=== PATIENT | female | born 1995 | race Two or more races ===

== ENCOUNTER 2023-01-22 08:55 | Observation (INO) | payer MEDICAID ==
[2023-01-22 10:51] LABS: Urine Bacteria NONE SEEN /hpf (None Seen); Urine Blood Negative /uL (Negative); Urine Clarity Clear (Clear); Urine Protein, UAD Negative (Negative); Urine Specific Gravity 1.004 (1.001-1.035); Urine Urobilinogen Normal (Negative); Urine WBC 1 /hpf (0 - 5); Urine pH 7.5 (5.0-8.0)
[2023-01-22 10:52] LABS: Urine Color Straw (Yellow)
[2023-01-22 10:52] LABS: Basophils # (auto) 0 10 ^3/uL (0-0.2); Basophils % (auto) 0.1 % (0.0-2.0); Eosinophils # (auto) 0 10 ^3/uL (0-0.8); Eosinophils % (auto) 0.3 % (0.0-7.0); Lymphocytes # (auto) 1.5 10 ^3/uL (0.4-5.4); Mean Corpuscular Hemoglobin 29.7 pg (28.0-32.0); Mean Corpuscular Hgb Conc. 33.4 g/dL (32.0-36.0); Mean Corpuscular Volume 88.8 fL (80.0-100.0); Monocytes # (auto) 0.5 10 ^3/uL (0-1.3); Monocytes % (auto) 6.4 % (0.0-12.0); Neutrophils # (auto) 6.1 10 ^3/uL (1.6-8.6); Neutrophils % (auto) 75.2 % (37.0-80.0); Nucleated Red Blood Cells % 0.1 %; Red Blood Cells 4.05 10^6/uL (4.0-5.20); Red Cell Distribution Width 14.8 % (11.8-14.3); White Blood Cell 8.2 10^3/uL (4.4-10.8)
[2023-01-22 10:59] LABS: Protein, Urine < 6.0 mg/dL (0.0-11.9)
[2023-01-22 11:00] LABS: Amphetamine Screen, Urine Neg (NEGATIVE); Barbiturate Scree,Urine Neg (NEGATIVE); Benzodiazephine Screen, Urine Neg (NEGATIVE); Cocaine Screen, Urine Neg (NEGATIVE); Opiate Scree,Urine Neg (NEGATIVE)
[2023-01-22 11:01] LABS: Cannabinoid Screen, Urine Pos (NEGATIVE); Creatinine, Urine 21.29 mg/dL (30.0-125.0); Phencyclidine Screen, Urine Neg (NEGATIVE); Urine Protein/Creatinine Ratio 0.28
[2023-01-22 11:12] LABS: Alanine Aminotransferase 19 U/L (7-40); Alkaline Phosphatase 131 U/L (46-116); Anion Gap 8 (5-15); Aspartate Aminotransferase 23 U/L (13-40); BUN/Creatinine Ratio 9.4 (10.0-20.0); Bilirubin, Total 0.3 mg/dL (0.2-1.0); Blood Urea Nitrogen < 5 mg/dL (9-23); Calcium 9.3 mg/dL (8.5-10.1); Carbon Dioxide 22 mmol/L (20-30); Chloride 109 mmol/L (98-107); Glucose 82 mg/dL (74-106); INR 0.97 (0.9-1.15); Partial Thromboplastin Time 29.9 SEC (24.5-34.5); Prothrombin Time 10.2 sec (9.3-11.8); Sodium 139 mmol/L (136-145); Total Protein 6.5 g/dL (5.7-8.2)
[2023-01-22] MEDS ORDERED: PREN1TAB71 OR (11:13)
[2023-01-22 11:26] LABS: Uric Acid 4.3 mg/dL (3.1-7.8)
== END 2023-01-22 11:55 | disposition home or self-care (01) ==
LOC: LDRP 08:55 → UNDOADMOB 08:55 → LDRP 09:26
PROVIDERS: ADMIT Obstetrics & Gynecology; ATTEND Obstetrics & Gynecology
DX: O13.3 Gestational [pregnancy-induced] hypertension without significant proteinuria, third trimester (principal); Z3A.36 36 weeks gestation of pregnancy; Z79.899 Other long term (current) drug therapy
CPT/HCPCS: 36415; 59025; 76818; 80053; 80307; 81001; 81002; 82570; 84156; 84550; 85025; 85610; 85730; G0378

== ENCOUNTER 2023-02-05 13:35 | Inpatient (IN) | payer MEDICAID ==
[~2023-02-05] VITALS: Ht 167.6 cm; Wt 139.3 kg
[~2023-02-05 13:35] MED LIST: PREN1TAB71 OR
[2023-02-05] MEDS ORDERED: BUTORPHANOL TARTRATE 2 MG/1 ML VIAL IV PRN ×2 (13:45)
[2023-02-05] MEDS ORDERED: WITCH HAZEL-GLYCERIN PAD TOP PRN (13:45)
[2023-02-05] MEDS ORDERED: PHISODERM TOP SOLN 240ML BTL TOP PRN (13:45)
[2023-02-05] MEDS ORDERED: PROMETHAZINE HCL 25 MG/ML 1ML IV PRN (13:45)
[2023-02-05] MEDS ORDERED: DERMOPLAST 60ML BOTTLE TOP PRN (13:45)
[2023-02-05] MEDS ORDERED: LIDOCAINE 2%HCL (LOCAL ANESTH.) INJ 20ML MDV IJ PRN (13:45)
[2023-02-05 14:55] LABS: Basophils # (auto) 0 10 ^3/uL (0-0.2); Basophils % (auto) 0.3 % (0.0-2.0); Eosinophils # (auto) 0 10 ^3/uL (0-0.8); Eosinophils % (auto) 0.4 % (0.0-7.0); Hematocrit 38.4 % (36.0-46.0); Hemoglobin 12.8 g/dL (12.2-16.2); Lymphocytes # (auto) 1.7 10 ^3/uL (0.4-5.4); Lymphocytes % (auto) 18.2 % (10.0-50.0); Mean Corpuscular Hemoglobin 29.7 pg (28.0-32.0); Mean Corpuscular Hgb Conc. 33.4 g/dL (32.0-36.0); Mean Corpuscular Volume 88.9 fL (80.0-100.0); Monocytes # (auto) 0.6 10 ^3/uL (0-1.3); Monocytes % (auto) 6.3 % (0.0-12.0); Neutrophils # (auto) 6.9 10 ^3/uL (1.6-8.6); Neutrophils % (auto) 74.8 % (37.0-80.0); Nucleated Red Blood Cells % 0.1 %; Red Blood Cells 4.33 10^6/uL (4.0-5.20); Red Cell Distribution Width 14.9 % (11.8-14.3); White Blood Cell 9.2 10^3/uL (4.4-10.8)
[2023-02-05] MEDS ORDERED: LACT. RINGERS/OXYTOCIN 20UNITS 500 ML IV ONE ×2 (15:00→15:30)
[2023-02-05 15:06] LABS: Alanine Aminotransferase 23 U/L (7-40); Alkaline Phosphatase 149 U/L (46-116); Anion Gap 11 (5-15); Calcium 9.3 mg/dL (8.5-10.1); Carbon Dioxide 20 mmol/L (20-30); Chloride 110 mmol/L (98-107); Glucose 73 mg/dL (74-106); Potassium 3.5 mmol/L (3.5-5.1); Sodium 141 mmol/L (136-145)
[2023-02-05 15:07] LABS: Albumin 4.2 g/dL (3.2-4.8); Aspartate Aminotransferase 23 U/L (13-40); Bilirubin, Total 0.3 mg/dL (0.2-1.0); Total Protein 6.9 g/dL (5.7-8.2)
[2023-02-05 15:10] LABS: INR 0.95 (0.9-1.15); Partial Thromboplastin Time 29.4 SEC (24.5-34.5)
[2023-02-05 15:15] LABS: BUN/Creatinine Ratio 9.1 (10.0-20.0); Blood Urea Nitrogen < 5 mg/dL (9-23)
[2023-02-05] MEDS ORDERED: miSOPROStol 100 mcg TAB ONE ×2 (17:30→22:48)
[2023-02-05] MEDS: miSOPROStol 50 MCG per PRE-CUT 1/2 TAB PO PRN ×2 (17:32→22:55)
[2023-02-05 17:37] LABS: Urine Bacteria NONE SEEN /hpf (None Seen); Urine Blood Negative /uL (Negative); Urine Clarity Clear (Clear); Urine Color Yellow (Yellow); Urine Mucus FEW (None Seen); Urine Protein, UAD Negative (Negative); Urine Specific Gravity 1.011 (1.001-1.035); Urine Urobilinogen Normal (Negative); Urine WBC 7 /hpf (0 - 5); Urine pH 6.5 (5.0-8.0)
[2023-02-05 17:55] LABS: Amphetamine Screen, Urine Neg (NEGATIVE)
[2023-02-05 17:57] LABS: Barbiturate Scree,Urine Neg (NEGATIVE); Benzodiazephine Screen, Urine Neg (NEGATIVE); Cannabinoid Screen, Urine Pos (NEGATIVE); Cocaine Screen, Urine Neg (NEGATIVE); Opiate Scree,Urine Neg (NEGATIVE); Phencyclidine Screen, Urine Neg (NEGATIVE)
[2023-02-05] MEDS: LABETALOL HCL 200 MG TAB PO SCH (22:19)
[2023-02-06 02:15] LABS: Protein, Urine 16.5 mg/dL (0.0-11.9)
[2023-02-06 02:18] LABS: Creatinine, Urine 66.91 mg/dL (30.0-125.0); Urine Protein/Creatinine Ratio 0.25
[2023-02-06] MEDS ORDERED: miSOPROStol 100 mcg TAB ONE ×2 (04:19→09:50)
[2023-02-06] MEDS: miSOPROStol 50 MCG per PRE-CUT 1/2 TAB PO PRN ×2 (04:30→09:52)
[2023-02-06 07:06] LABS: RPR Non Reactive (Non Reactive)
[2023-02-06] MEDS: LABETALOL HCL 200 MG TAB PO SCH ×2 (10:00→22:03)
[2023-02-06] MEDS: LACTATED RINGER'S 1,000 ML IV SCH ×3 (10:01→18:20)
[2023-02-06] MEDS ORDERED: ROPIVACAINE HCL 100 ML ONE ×2 (14:43→20:05)
[2023-02-06] MEDS ORDERED: ePHEDrine SULFATE 50 MG/ML AMP IV ONE (15:00)
[2023-02-06] MEDS ORDERED: NALOXONE HCL 0.4 MG/ML VIAL IV ONE (15:00)
[2023-02-06] MEDS: ONDANSETRON HCL 4 MG/2 ML VIAL IV PRN (22:04)
[2023-02-07] VITALS (7 sets, daily range): BP systolic 125–144; BP diastolic 66–78; PULSE 81–109; RESP 14–18; TEMP 98.1–98.8; O2SAT 96–100
[2023-02-07] MEDS ORDERED: ROPIVACAINE HCL 100 ML ONE (03:02)
[2023-02-07] MEDS: ONDANSETRON HCL 4 MG/2 ML VIAL IV PRN (03:06)
[2023-02-07] MEDS: LACTATED RINGER'S 1,000 ML IV SCH (03:56)
[2023-02-07] MEDS ORDERED: LACT. RINGERS/OXYTOCIN 20UNITS 1,000 ML IV SCH (05:30)
[2023-02-07] MEDS ORDERED: TERBUTALINE SULFATE 1 MG/ML 1ML VIAL SC PRN (05:30)
[2023-02-07] MEDS ORDERED: SODIUM CHLORIDE 0.9% 1,000 ML IUPC SCH (09:00)
[2023-02-07] MEDS ORDERED: SODIUM CHLORIDE 0.9% 200 ML IUPC ONE (09:00)
[2023-02-07] MEDS ORDERED: ceFAZolin 2 GM/D5W100ml 100 ML IV ONE (10:00)
[2023-02-07] MEDS ORDERED: CEPH500C PO (10:52)
[2023-02-07] MEDS ORDERED: DOCU-94 PO (10:52)
[2023-02-07] MEDS ORDERED: HYDR-4902 PO (10:52)
[2023-02-07] MEDS ORDERED: TETRACAINE 1% INJ 2 ML VIAL IJ ONE (11:27)
[2023-02-07] MEDS ORDERED: MORPHINE SULF PF 5 MG/10 ML VIAL ONE (11:30)
[2023-02-07] MEDS ORDERED: ONDANSETRON HCL 4 MG/2 ML VIAL IV PRN ×3 (11:30→13:15)
[2023-02-07] MEDS ORDERED: LACT. RINGERS/OXYTOCIN 20UNITS 1,000 ML IV ONE (11:30)
[2023-02-07] MEDS ORDERED: CARBOPROST TROMETHAMINE 250 MCG/1ML VIAL IM ONE (12:09)
[2023-02-07] MEDS ORDERED: KETOROLAC TROMETH 30 MG/ML 1ML VIAL IV PRN (13:15)
[2023-02-07] MEDS ORDERED: diphenhdrAMINE HCL 50 MG/1 ML VL IV PRN (13:15)
[2023-02-07] MEDS ORDERED: DexAMETHasone SOD PHOS 10MG/1ML VIAL INJ IV PRN (13:15)
[2023-02-07] MEDS ORDERED: NALOXONE HCL 0.4 MG/ML VIAL IV PRN (13:15)
[2023-02-07] MEDS ORDERED: PROMETHAZINE HCL 25 MG/ML 1ML IV ONE (16:30)
[2023-02-07] MEDS: ceFAZolin 1GM/50ML 50 ML IV SCH (17:52)
[2023-02-07] MEDS ORDERED: ceFAZolin 1GM/50ML 50 ML IV SCH (18:00)
[2023-02-07] MEDS ORDERED: ACETAMINOPHEN IV 1000 MG/100ML (10MG/ML) IV PRN (19:15)
[2023-02-07] MEDS: LABETALOL HCL 200 MG TAB PO SCH (21:51)
[2023-02-07 21:56] LABS: Basophils # (auto) 0 10 ^3/uL (0-0.2); Basophils % (auto) 0.2 % (0.0-2.0); Eosinophils # (auto) 0 10 ^3/uL (0-0.8); Eosinophils % (auto) 0.1 % (0.0-7.0); Hematocrit 33.4 % (36.0-46.0); Hemoglobin 10.8 g/dL (12.2-16.2); Lymphocytes # (auto) 1.7 10 ^3/uL (0.4-5.4); Lymphocytes % (auto) 13.5 % (10.0-50.0); Mean Corpuscular Hemoglobin 29.1 pg (28.0-32.0); Mean Corpuscular Hgb Conc. 32.4 g/dL (32.0-36.0); Mean Corpuscular Volume 89.8 fL (80.0-100.0); Monocytes # (auto) 0.8 10 ^3/uL (0-1.3); Monocytes % (auto) 6.3 % (0.0-12.0); Neutrophils # (auto) 9.8 10 ^3/uL (1.6-8.6); Neutrophils % (auto) 79.9 % (37.0-80.0); Red Blood Cells 3.71 10^6/uL (4.0-5.20); Red Cell Distribution Width 15.1 % (11.8-14.3); White Blood Cell 12.2 10^3/uL (4.4-10.8)
[2023-02-08] VITALS (9 sets, daily range): BP systolic 116–130; BP diastolic 61–77; PULSE 81–98; RESP 16–18; TEMP 98.1–98.7; O2SAT 94–100
[2023-02-08] MEDS: ceFAZolin 1GM/50ML 50 ML IV SCH (02:20)
[2023-02-08 06:08] LABS: Basophils # (auto) 0 10 ^3/uL (0-0.2); Basophils % (auto) 0.1 % (0.0-2.0); Eosinophils # (auto) 0 10 ^3/uL (0-0.8); Eosinophils % (auto) 0.2 % (0.0-7.0); Hematocrit 34.9 % (36.0-46.0); Hemoglobin 11.6 g/dL (12.2-16.2); Lymphocytes # (auto) 1.6 10 ^3/uL (0.4-5.4); Lymphocytes % (auto) 13.7 % (10.0-50.0); Mean Corpuscular Hemoglobin 29.7 pg (28.0-32.0); Mean Corpuscular Hgb Conc. 33.1 g/dL (32.0-36.0); Mean Corpuscular Volume 89.7 fL (80.0-100.0); Monocytes # (auto) 0.9 10 ^3/uL (0-1.3); Monocytes % (auto) 7.5 % (0.0-12.0); Neutrophils # (auto) 9.1 10 ^3/uL (1.6-8.6); Neutrophils % (auto) 78.5 % (37.0-80.0); Red Blood Cells 3.89 10^6/uL (4.0-5.20); Red Cell Distribution Width 14.8 % (11.8-14.3); White Blood Cell 11.6 10^3/uL (4.4-10.8)
[2023-02-08] MEDS ORDERED: ceFAZolin 1GM/50ML 50 ML IV ONE (10:28)
[2023-02-08] MEDS: LABETALOL HCL 200 MG TAB PO SCH ×3 (11:33→23:54)
[2023-02-08] MEDS ORDERED: BISACODYL 10 MG RECT SUPP PR PRN (14:30)
[2023-02-08] MEDS ORDERED: HYDROcodone-ACET 5/325MG TAB PO PRN (14:30)
[2023-02-08] MEDS: HYDROcodone-ACET 5/325MG TAB PO PRN ×2 (14:43→23:53)
[2023-02-08] MEDS: IBUPROFEN 800 MG TAB PO PRN (17:59)
[2023-02-08] MEDS: DOCUSATE SOD 100 MG CAP PO SCH (22:16)
[2023-02-09 03:15] VITALS: BP 107/69; PULSE 78; RESP 16; TEMP 97.6; O2SAT 95
[2023-02-09] MEDS: IBUPROFEN 800 MG TAB PO PRN (03:28)
[2023-02-09 07:00] VITALS: BP 128/72; PULSE 85; RESP 16; TEMP 98.1; O2SAT 85
[2023-02-09] MEDS ORDERED: ONDANSETRON HCL 4 MG/2 ML VIAL IV PRN (08:15)
[2023-02-09] MEDS: DOCUSATE SOD 100 MG CAP PO SCH (10:19)
[2023-02-09] MEDS: LABETALOL HCL 200 MG TAB PO SCH (10:20)
[2023-02-09 10:53] VITALS: BP 141/85; PULSE 89; RESP 17; TEMP 98.3; O2SAT 100
[2023-02-10 19:06] LABS: Treponema pallidum Ab (FTA-Ab) Non Reactive (Non Reactive)
== END 2023-02-09 14:47 | disposition home or self-care (01) | DRG 540 ==
LOC: LDRP 13:35
PROVIDERS: ADMIT Obstetrics & Gynecology; ATTEND Obstetrics & Gynecology
PROC: 10D00Z1 Extraction of Products of Conception, Low, Open Approach (ICD-10-PCS; principal; 2023-02-07 11:34)
DX: O77.0 Labor and delivery complicated by meconium in amniotic fluid (principal); R71.0 Precipitous drop in hematocrit; O16.4 Unspecified maternal hypertension, complicating childbirth; E66.01 Morbid (severe) obesity due to excess calories; O99.214 Obesity complicating childbirth; Z37.0 Single live birth; Z3A.38 38 weeks gestation of pregnancy
CPT/HCPCS: 36415; 62282; 80053; 80307; 81001; 82570; 84156; 85025; 85610; 85730; 86592; 86850; 86900; 86901; 94760; 94762; 96360; 96361; 96366; 96374; G0378; J2405; J2590

== ENCOUNTER 2023-07-24 11:24 | Emergency (ER) | payer MEDICAID ==
[~2023-07-24] VITALS: Ht 167.6 cm; Wt 100.0 kg
[~2023-07-24 11:24] MED LIST changes: +CEPH500C PO; +DOCU-94 PO; +HYDR-4902 PO
[2023-07-24 11:40] LABS: Basophils # (auto) 0.1 10 ^3/uL (0-0.2); Basophils % (auto) 0.5 % (0.0-2.0); Eosinophils # (auto) 0 10 ^3/uL (0-0.8); Eosinophils % (auto) 0.1 % (0.0-7.0); Hematocrit 43.6 % (36.0-46.0); Hemoglobin 14.8 g/dL (12.2-16.2); Lymphocytes # (auto) 0.9 10 ^3/uL (0.4-5.4); Lymphocytes % (auto) 7.6 % (10.0-50.0); Mean Corpuscular Hemoglobin 28.8 pg (28.0-32.0); Mean Corpuscular Hgb Conc. 33.8 g/dL (32.0-36.0); Mean Corpuscular Volume 85.2 fL (80.0-100.0); Monocytes # (auto) 0.6 10 ^3/uL (0-1.3); Monocytes % (auto) 5.4 % (0.0-12.0); Neutrophils # (auto) 10.3 10 ^3/uL (1.6-8.6); Neutrophils % (auto) 86.4 % (37.0-80.0); Nucleated Red Blood Cells % 0.1 %; Red Blood Cells 5.12 10^6/uL (4.0-5.20); White Blood Cell 11.9 10^3/uL (4.4-10.8)
[2023-07-24] MEDS ORDERED: ASPirin 81 mg TAB PO ONE (12:00)
[2023-07-24 12:07] LABS: Alanine Aminotransferase 203 U/L (7-40); Albumin 4.9 g/dL (3.2-4.8); Alkaline Phosphatase 165 U/L (46-116); Anion Gap 9 (5-15); Aspartate Aminotransferase 389 U/L (13-40); BUN/Creatinine Ratio 11.4 (10.0-20.0); Bilirubin, Total 0.7 mg/dL (0.2-1.0); Blood Urea Nitrogen 8 mg/dL (9-23); Calcium 9.9 mg/dL (8.5-10.1); Carbon Dioxide 24 mmol/L (20-30); Chloride 107 mmol/L (98-107); Glucose 108 mg/dL (74-106); Potassium 3.7 mmol/L (3.5-5.1); Sodium 140 mmol/L (136-145); Total Protein 7.9 g/dL (5.7-8.2)
[2023-07-24 12:15] LABS: INR 0.98 (0.9-1.15); Partial Thromboplastin Time 20.5 SEC (24.5-34.5); Prothrombin Time 10.4 sec (9.3-11.8)
[2023-07-24] MEDS: SODIUM CHLORIDE 0.9% 1,000 ML IV ONE (14:15)
[2023-07-24] MEDS: METOCLOPRAMIDE HCL 5MG/ml INJ 2ml VIAL IV ONE (14:26)
[2023-07-24 14:32] VITALS: TEMP 97.6
[2023-07-24] MEDS: IOHEXOL 350 MG/ML 100ML IJ ONE ×2 (15:34)
[2023-07-24] MEDS ORDERED: CEPH500T PO (16:28)
[2023-07-24] MEDS ORDERED: ACET-1304 PO (16:28)
[2023-07-24 16:57] VITALS: BP 118/64; PULSE 73; RESP 18; O2SAT 99
[2023-07-24 17:54] LABS: Urine Bacteria None Seen /hpf (None Seen)
[2023-07-24 18:09] LABS: Amphetamine Screen, Urine Neg (NEGATIVE)
[2023-07-24 18:10] LABS: Barbiturate Scree,Urine Neg (NEGATIVE); Benzodiazephine Screen, Urine Neg (NEGATIVE); Cannabinoid Screen, Urine Pos (NEGATIVE); Cocaine Screen, Urine Neg (NEGATIVE); Opiate Scree,Urine Neg (NEGATIVE); Phencyclidine Screen, Urine Neg (NEGATIVE)
[2023-07-24 18:13] LABS: Urine Blood Negative /uL (Negative); Urine Clarity Clear (Clear); Urine Color Light-Yellow (Yellow); Urine Protein, UAD Negative (Negative); Urine Specific Gravity > 1.035 (1.001-1.035); Urine Urobilinogen Normal (Negative); Urine WBC 2 /hpf (0 - 5); Urine pH 7.5 (5.0-9.0)
== END 2023-07-24 17:00 | disposition home or self-care (01) ==
LOC: ER 11:24
DX: I88.0 Nonspecific mesenteric lymphadenitis (principal); F12.10 Cannabis abuse, uncomplicated; Z79.899 Other long term (current) drug therapy
CPT/HCPCS: 36415; 71045; 71275; 74176; 80053; 80307; 81001; 82550; 83690; 83880; 84484; 84702; 85025; 85379; 85610; 85730; 93005; 93970; 96361; 96374; 99285; J2765; J7030; Q9967

== ENCOUNTER 2025-01-12 17:26 | Emergency (ER) | payer MEDICAID ==
[~2025-01-12] VITALS: Ht 170.2 cm; Wt 128.6 kg
[~2025-01-12 17:26] MED LIST changes: +ACET-1304 PO; +CEPH500T PO
[2025-01-12] MEDS: SODIUM CHLORIDE 0.9% 1,000 ML IV ONE (18:33)
[2025-01-12] MEDS: ONDANSETRON HCL 4 MG/2 ML VIAL IV ONE ×2 (18:33→19:36)
[2025-01-12 18:37] VITALS: PULSE 94; RESP 12; O2SAT 99
[2025-01-12 18:46] LABS: Hematocrit 42.2 % (36.0-46.0); Hemoglobin 14.4 g/dL (12.2-16.2); Mean Corpuscular Hemoglobin 29.1 pg (28.0-32.0); Mean Corpuscular Volume 85.6 fL (80.0-100.0); Nucleated Red Blood Cells % 0.1 %
[2025-01-12 19:05] LABS: Alanine Aminotransferase 19 U/L (7-40); Albumin 4.7 g/dL (3.2-4.8); Alkaline Phosphatase 110 U/L (46-116); Anion Gap 13 (5-15); BUN/Creatinine Ratio 7.2 (10.0-20.0); Bilirubin, Total 0.4 mg/dL (0.2-1.0); Calcium 10.0 mg/dL (8.7-10.4); Carbon Dioxide 23 mmol/L (20-31); Chloride 106 mmol/L (98-107); Potassium 3.6 mmol/L (3.5-5.1); Sodium 142 mmol/L (136-145); Total Protein 8.1 g/dL (5.7-8.2)
[2025-01-12 19:06] LABS: Blood Urea Nitrogen 6 mg/dL (9-23); Glucose 120 mg/dL (74-106)
[2025-01-12] MEDS: HYDROmorphone HCL 2 MG/ML VL/or syr IV ONE (19:38)
[2025-01-12] MEDS: SODIUM CHLORIDE 0.9% 1,000 ML IVB ONE (19:39)
[2025-01-12 19:43] VITALS: PULSE 63; RESP 14; TEMP 98.2; O2SAT 100
--- NOTE | 2025-01-12 20:04 | ED.PDOC ---
GI ASSESSMENT HPI Comments 29-year-old female who came to ER for nausea and vomiting. Patient states after eating dinner she started having diffuse abdominal pain, with the episodes of nausea and vomiting. Patient states she is the only 1 having these symptoms from all the people that ate dinner. Chief Complaint: Nausea/Vomiting Time Seen by MD: 20:04 Reviewed Notes: Nurses Notes Allergies: Coded Allergies: NO KNOWN ALLERGIES (Unverified , 02/05/23) Home Meds Active Scripts Acetaminophen (Tylenol Extra Strength) 500 Mg Tab, 500 MG PO QIDPRN for 10 Days, #40 TAB Prov:YIFAN DINHGenieWADEBrittany S DO 07/24/23 Cephalexin Monohydrate (Cephalexin) 500 Mg Tab, 1 TAB PO QID for 10 Days, #40 TAB Prov:SAGAR DINHBrittany S DO 07/24/23 Hydrocodone-Acetaminophen (Hydrocodone Bitartrate/AC 5-325 mg) 1 Tab Tab, 1 TAB PO Q6HPRN PRN for 6 Days, #24 TAB Prov:JIM GTZ DO 02/07/23 Docusate Sodium (Colace) 100 Mg Cap, 1 CAP PO BID, #60 CAP 2 Refills Prov:JIM GTZ DO 02/07/23 Cephalexin Monohydrate (Cephalexin) 500 Mg Cap, 1 CAP PO QID for 7 Days, #40 CAP Prov:JIM GTZ DO 02/07/23 Reported Medications Vit W/ Ferrous Fumara (PNV PLUS MULTIVI) Plus Tab, 1 OR, TAB 01/22/23 Information Source: Patient Mode of Arrival: Ambulatory Timing: Hours Duration: Since onset Past Medical History PAST MEDICAL HISTORY: Denies Surgical History: Cholecystectomy, GENERAL INTERNAL MEDICINE DOCTOR History: Denies all GENERAL INTERNAL MEDICINE DOCTOR Hx Family History Family History: Reviewed,noncontributory to illness Social History Smoker: Non-Smoker Alcohol: Occasionally Drugs: Marijuana Lives In: Home Constitutional: denies: chills, diaphoresis, fatigue, fever, malaise, sweats, weakness, others EENTM: denies: blurred vision, double vision, ear bleeding, ear discharge, ear drainage, ear pain, ear ringing, eye pain, eye redness, hearing loss, mouth pain, mouth swelling, nasal discharge, nose bleeding, nose congestion, nose pain, photophobia, tearing, throat pain, throat swelling, voice changes, others Respiratory: denies: cough, hemoptysis, orthopnea, SOB at rest, shortness of breath, SOB with excertion, stridor, wheezing, others Cardiovascular: denies: chest pain, dizzy spells, diaphoresis, Dyspnea on exertion, edema, irregular heart beat, left arm pain, lightheadedness, palpitations, PND, syncope, others Gastrointestinal: reports: abdominal pain, nausea, vomiting; denies: abdomen distended, blood streaked bowels, constipated, diarrhea, dysphagia, difficulty swallowing, hematemesis, melena, poor appetite, poor fluid intake, rectal bleeding, rectal pain, others Genitourinary: denies: abnormal vagina bleeding, burning, dyspareunia, dysuria, flank pain, frequency, hematuria, incontinence, pain, , vagina discharge, urgency, others Neurological: denies: dizziness, fainting, headache, left sided numbness, left sided weakness, numbness, paresthesia, pre-existing deficit, right sided numbness, right sided weakness, seizure, speech problems, tingling, tremors, weakness, others Musculoskeletal: denies: back pain, gout, joint pain, joint swelling, muscle p ain, muscle stiffness, neck pain, others Integumetry: denies: bruises, change in color, change in hair/nails, dryness, laceration, lesions, lumps, rash, wounds, others Allergic/Immunocompromised: denies: Difficulty Healing, Frequent Infections, Hives, Itching, others Hematologic/Lymphatic: denies: anemia, blood clots, easy bleeding, easy bruising, swollen glands, others Endocrine: denies: excessive hunger, excessive sweating, excessive thirst, excessive urination, flushing, intolerance to cold, intolerance to heat, unexplained weight gain, unexplained weight loss, others Psychiatric: denies: anxiety, bipolar disorder, depression, hopeless, panic disorder, schizophrenia, sleepless, suicidal, others Physical Exam General Appearance: No Apparent Distress, Normal HEENT: Normal ENT Inspection, Pharynx Normal, TMs Normal Neck: Full Range of Motion, Non-Tender, Normal, Normal Inspection Respiratory: Chest Non-Tender, Lungs Clear, No Accessory Muscle Use, No Respiratory Distress, Normal Breath Sounds Cardiovascular: No Edema, No JVD, No Murmur, No Gallop, Normal Peripheral Pulses, Regular Rate/Rhythm Breast Exam: Deferred Gastrointestinal: No Organomegaly, Non Tender, No Pulsatile Mass, Normal Bowel Sounds, Soft Genitalia: Deferred Pelvic: Deferred Rectal: Deferred Extremities: No calf tenderness, Normal capillary refill, Normal inspection, Normal range of motion, Non-tender, No pedal edema Musculoskeletal : Apperance: Normal Neurologic: Alert, processor solid propellant II-XII nml as Tested, No Motor Deficits, Normal Affect, Normal Mood, No Sensory Deficits Cerebellar Function: Normal Reflexes: Normal Skin: Dry, Normal Color, Warm Lymphatic: No Adenopathy Was a procedure done? Was a procedure done?: No GI differential Dx Differential Diagnosis: Bowel Obstruction, Diverticular disease, Gastritis/PUD, Gastroenteritis, Pancreatitis, Dehydration, Food Poisoning X-Ray, Labs, Meds, VS Vital Signs Date Time Temp Pulse Resp B/P (MAP) Pulse Ox O2 Delivery O2 Flow Rate FiO2 01/12/25 23:04 80 10 108/74 (85) 96 01/12/25 21:00 65 16 142/80 (100) 100 01/12/25 20:00 73 14 143/68 (93) 89 01/12/25 19:43 98.2 63 14 150/78 (102) 100 98.2 01/12/25 19:43 63 14 100 Room Air* 0 01/12/25 19:38 89 15 153/88 01/12/25 18:37 94 12 99 Room Air* 0 01/12/25 18:37 98.6 68 12 127/100 (109) 97 98.6 01/12/25 17:27 98.6 80 18 127/99 96 98.6 Lab Test 01/12/25 18:32 01/12/25 00:00 Range/Units White Blood Count 13.1 H 4.4-10.8 10^3/uL Red Blood Count 4.93 4.0-5.20 10^6/uL Hemoglobin 14.4 12.2-16.2 g/dL Hematocrit 42.2 36.0-46.0 % Mean Corpuscular Volume 85.6 80.0-100.0 fL Mean Corpuscular Hemoglobin 29.1 28.0-32.0 pg Mean Corpuscular Hemoglobin Concent 34.1 32.0-36.0 g/dL Red Cell Distribution Width 14.2 11.8-14.3 % Platelet Count 280 140-450 10^3/uL Mean Platelet Volume 8.9 6.9-10.8 fL Neutrophils (%) (Auto) 78.3 37.0-80.0 % Lymphocytes (%) (Auto) 15.7 10.0-50.0 % Monocytes (%) (Auto) 4.8 0.0-12.0 % Eosinophils (%) (Auto) 0.4 0.0-7.0 % Basophils (%) (Auto) 0.8 0.0-2.0 % Neutrophils # (Auto) 10.2 H 1.6-8.6 10 ^3/uL Lymphocytes # (Auto) 2.0 0.4-5.4 10 ^3/uL Monocytes # (Auto) 0.6 0-1.3 10 ^3/uL Eosinophils # (Auto) 0.1 0-0.8 10 ^3/uL Basophils # (Auto) 0.1 0-0.2 10 ^3/uL Nucleated Red Blood Cells 0.1 % Sodium Level 142 136-145 mmol/L Potassium Level 3.6 3.5-5.1 mmol/L Chloride Level 106 98-107 mmol/L Carbon Dioxide Level 23 20-31 mmol/L Anion Gap 13 5-15 Blood Urea Nitrogen 6 L 9-23 mg/dL Creatinine 0.83 0.550-1.02 mg/dL Glomerular Filtration Rate Calc 99 >90 mL/min BUN/Creatinine Ratio 7.2 L 10.0-20.0 Serum Glucose 120 H 74-106 mg/dL Calcium Level 10.0 8.7-10.4 mg/dL Magnesium Level 1.6 1.6-2.6 mg/dL Total Bilirubin 0.4 0.2-1.0 mg/dL Aspartate Amino Transferase (AST) 26 13-40 U/L Alanine Aminotransferase (ALT) 19 7-40 U/L Alkaline Phosphatase 110 46-116 U/L Total Protein 8.1 5.7-8.2 g/dL Albumin 4.7 3.2-4.8 g/dL Beta HCG, Quantitative 0.7 L 1.5-4.2 mIU/mL Urine Color Colorless Yellow Urine Clarity Turbid H Clear Urine pH 8.0 5.0-9.0 Urine Specific [place] 1.037 H 1.001-1.035 Urine Protein Negative Negative Urine Ketones Trace Negative Urine Blood Negative Negative /uL Urine Nitrite Negative Negative Urine Bilirubin Negative Negative Urine Urobilinogen Normal Negative mg/dL Urine Leukocyte Esterase 2+ Negative /uL Urine RBC 2 0 - 4 /hpf Urine Microscopic WBC 25 H 0-5 /HPF Urine Squamous Epithelial Cells Mod <5 /hpf Urine Bacteria Few H None Seen /hpf Urine Hyaline Casts Few 0 - 2 /lpf Urine Glucose Normal Normal mg/dL Current Medications Medications (Trade) Dose Ordered Sig/Catracho Route Start Time Stop Time Status Last Admin Ondansetron HCl (Zofran) 4 mg ONCE ONCE IV 01/12/25 18:15 01/12/25 18:16 DC 01/12/25 18:33 Sodium Chloride 1,000 ml @ 1,000 mls/hr Q1H ONCE IV 01/12/25 18:15 01/12/25 19:14 DC 01/12/25 18:33 Ondansetron HCl (Zofran) 4 mg ONCE ONCE IV 01/12/25 19:00 01/12/25 19:01 DC 01/12/25 19:36 Hydromorphone HCl (Dilaudid Injection) 1 mg ONCE ONCE IV 01/12/25 19:00 01/12/25 19:01 DC 01/12/25 19:38 Sodium Chloride 1,000 ml @ 1,000 mls/hr Q1H ONCE IVB 01/12/25 19:00 01/12/25 19:59 DC 01/12/25 19:39 Time of 1ST Reevaluation: 20:02 Reevaluation 1ST: Unchanged Patient Education/Counseling: Diagnosis, Treatment Family Education/Counseling: No Family Present SEPSIS Sepsis Screen Date sepsis recognized/suspect: Jan 12, 2025 Time Sepsis recognized/suspect: 1839 Recent Procedure: No On Antibiotic Therapy: No Respiratory Rate >20: No Heart Rate >90: No Temp<36 C (96.8 F) or >38.3 C: No SBP <90 or MAP <65 mmHG: No New Acute Mental Status Change: No Is the patient on CPAP, BIPAP,: No Physician Orders Ct Ab Pel With Iv Con Only (01/12/25 18:54) Vital Signs Date Time Temp Pulse Resp B/P (MAP) Pulse Ox O2 Delivery O2 Flow Rate FiO2 01/12/25 23:04 80 10 108/74 (85) 96 01/12/25 21:00 65 16 142/80 (100) 100 01/12/25 20:00 73 14 143/68 (93) 89 01/12/25 19:43 98.2 63 14 150/78 (102) 100 98.2 01/12/25 19:43 63 14 100 Room Air* 0 21 01/12/25 19:38 89 15 153/88 01/12/25 18:37 94 12 99 Room Air* 0 21 01/12/25 18:37 98.6 68 12 127/100 (109) 97 98.6 01/12/25 17:27 98.6 80 18 127/99 96 98.6 Laboratory Tests Test 01/12/25 18:32 White Blood Count 13.1 10^3/uL (4.4-10.8) H Medications Medications Dose Ordered Sig/Catracho Route Start Time Stop Time Status Last Admin Dose Admin Hydromorphone HCl 1 mg ONCE ONCE IV 01/12/25 19:00 01/12/25 19:01 DC 01/12/25 19:38 Ondansetron HCl 4 mg ONCE ONCE IV 01/12/25 18:15 01/12/25 18:16 DC 01/12/25 18:33 Ondansetron HCl 4 mg ONCE ONCE IV 01/12/25 19:00 01/12/25 19:01 DC 01/12/25 19:36 Sodium Chloride 1,000 ml @ 1,000 mls/hr Q1H ONCE IV 01/12/25 18:15 01/12/25 19:14 DC 01/12/25 18:33 Sodium Chloride 1,000 ml @ 1,000 mls/hr Q1H ONCE IVB 01/12/25 19:00 01/12/25 19:59 DC 01/12/25 19:39 Departure 1 Departure Time of Disposition: 22:00 Impression: Primary Impression: Abdominal cramping Additional Impression: Nausea and vomiting Disposition: 01 HOME / SELF CARE / HOMELESS Condition: Stable Discharged With: Self Critical Care Note Critical Care Time?: No Stability Stability form required: No Heart Score Heart Score: Heart Score Response (Comments) Value History N/A 0 EKG N/A 0 Age N/A 0 Risk Factors N/A 0 Troponin N/A 0 Total 0 I personally scribed for ELLIOT HARMON MD ([email or web address]) on 01/12/25 at 20:04. Electronically submitted by Radames Gallardo ([email or web address]). ELLIOT HARMON MD Jan 12, 2025 20:04
[2025-01-12] MEDS: IOHEXOL 300 MG/ML 100ML BOTTLE IJ ONE (20:21)
--- NOTE | 2025-01-12 22:19 | DVH ---
Exam: CT CT AB PEL WITH IV CON ONLY History: abd pain COMPARISON: CT CT AB PEL WO CON-NO ORAL OR IV on DOS: 07/24/23 Technique: Multidetector spiral CT of the abdomen and pelvis was performed from lung bases to pubic symphysis. Intravenous contrast was administered during this examination. Portal venous imaging was obtained. Axial, coronal and sagittal multiplanar reformats were performed by the technologist on a separate workstation. Radiation Dose : 1. Abdomen/Pelvis: CTDIvol 26.26mGy, DLP 1496.5 mGy*cm. CONTRAST: Type of contrast: Omnipaque 300 Contrast injected: 100 ml Findings: Lung Bases: No acute or significant lung base finding. Normal heart size. No pleural or pericardial effusion. Liver: The liver is normal in size. No focal lesions. Normal hepatic vascular enhancement. Gallbladder and Biliary Tree: Gallbladder is surgically absent. Spleen: Unremarkable Pancreas: The pancreas is normal in appearance without focal lesions or abnormal enhancement. Adrenal Glands: Unremarkable Kidneys: No hydronephrosis. Bladder: Unremarkable Bowel: The stomach is grossly normal in appearance. Small bowel and colon are normal in caliber and distribution. Normal appendix is visualized in the right lower quadrant without findings of appendicitis. Ascites: Absent Lymphadenopathy: No mesenteric, retroperitoneal or periportal lymphadenopathy. Abdominal Wall and Mesentery: Fat containing paraumbilical hernia with no herniated bowel loops or inflammatory changes.. Vasculature: The visualized abdominal aorta is normal in size and caliber. Abdominal and pelvic vessels demonstrate normal enhancement. Pelvic Organs: Unremarkable Musculoskeletal: No aggressive focal bony lesions, acute fractures or dislocation. IMPRESSION: No acute abdominal or pelvic finding. Radiation optimization: All CT scans at this facility use at least one of these dose optimization techniques: automated exposure control mA and/or kV adjustment per patient size (includes targeted exams where dose is matched to clinical indication) or iterative reconstruction.
[2025-01-12 23:04] VITALS: BP 108/74; PULSE 80; RESP 10; O2SAT 96
[2025-01-12 23:34] LABS: Urine Protein, UAD Negative (Negative)
== END 2025-01-12 23:47 | disposition home or self-care (01) ==
LOC: ER 17:26
DX: R10.84 Generalized abdominal pain (principal); R11.2 Nausea with vomiting, unspecified; Z90.49 Acquired absence of other specified parts of digestive tract; Z79.899 Other long term (current) drug therapy
CPT/HCPCS: 36415; 74177; 80053; 81001; 83735; 84702; 85025; 96361; 96374; 96375; 96376; 99285; J1171; J2405; J7030; Q9967